=== PATIENT | female | born 1945 | race Caucasian/White ===

== ENCOUNTER 2017-08-12 03:14 | Inpatient (IN) | payer OTHER ==
[~2017-08-12] VITALS: Ht 182.9 cm; Wt 79.4 kg
--- NOTE | ~2017-08-12 | EKG ---
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1945 Requested By: Lisbet Jean Order Number: [id number] MD: Romaine Gutierrez Measurements Intervals [place] Rate: 77 P: 81 SC: 212 QRS: 52 QRSD: 119 T: 88 QT: 409 QTc: 463 Interpretive Statements Sinus rhythm Borderline prolonged SC interval Nonspecific intraventricular conduction delay Borderline low voltage, extremity leads Nonspecific T abnrm, anterolateral leads Baseline wander in lead(s) V4,V5 Compared to ECG 10/24/2010 14:27:38 Intraventricular conduction delay now present Myocardial infarct finding no longer present Electronically Signed On 08-12-2017 8:22:36 CDT by Romaine Gutierrez [email or web address] <ELECTRONICALLY SIGNED> By: Romaine Gutierrez MD 08/12/17 0822 9 042 Romaine Gutierrez MD /EPI
--- NOTE | ~2017-08-12 | O ---
[facility] [place] [address] OPERATIVE REPORT Name: NANCY ESQUIVEL Room #: 410-P [facility] IN M.R.#: [id number] Admission: 08/12/17 Attend Phys: Gautam Silva MD Discharge: Date of : 45 Report #: [id number] THIS REPORT FOR: //name// CC: Gautam Kaye DATE OF SERVICE: 08/13/2017 PREOPERATIVE DIAGNOSIS: Displaced right femoral neck fracture. POSTOPERATIVE DIAGNOSIS: Displaced right femoral neck fracture. PROCEDURE: Right total hip arthroplasty. SURGEON: Elliot Dooley MD. KNITTER OPERATOR: Victorina Obrien PA-C. INDICATIONS FOR ASSISTANCE: Throughout the case, extensive retraction and manipulation of the hip including dislocation and reduction of the joint was required. This was afforded to me by my blood bank assistant ANESTHESIA: General endotracheal. IMPLANTS: [employer]hew size 54 R3 acetabular cup with one acetabular screw, size 13 Synergy cemented high offset stem with a size 36+4 cobalt chrome head. ESTIMATED BLOOD LOSS: 100 mL. COMPLICATIONS: None. SPECIMEN: None. CONDITION UPON LEAVING OPERATING ROOM: Stable. INDICATION FOR PROCEDURE: The patient is a 71-year-old female who fell at home and sustained a right displaced femoral neck fracture. She is relatively active with her and after discussion with she and her , they elected for total hip arthroplasty. DESCRIPTION OF PROCEDURE: Risks, benefits, alternatives, complications were discussed in detail with the patient including but not limited to risk of anesthesia, risk of damage to nerves, arteries, blood vessels, risk for infection, bleeding, risk for continued hip pain, leg length discrepancy, instability and need for reoperation. Informed consent was obtained from the [facility] [address] [address] [place] [address] OPERATIVE REPORT Name: NANCY ESQUIVEL Room #: 410-P [facility] IN M.R.#: [id number] Admission: 08/12/17 Attend Phys: Gautam Silva MD Discharge: Date of : 45 Report #: [id number] patient. The right hip was appropriately marked in the preoperative holding area. She was brought to the operating room and placed in supine position on operating room table. General endotracheal anesthesia was induced without complications. She was placed in the left lateral decubitus position with the right hip uppermost. Right hip and lower extremity were prepped and draped in normal sterile fashion. Timeout was performed properly identifying the patient and procedure as well as the instrumentation and implants. All in the operating room were in agreement. Standard posterior approach to the hip was made with 10 blade through the skin. Dissection was taken down to the fascia with Bovie cautery. This was cleaned with Stewart elevator. Fresh 10 blade was used to make a fascial incision. This was taken proximally and distally with curved Davila scissor. Charnley retractor was placed. The piriformis tendon was identified, tagged and taken down with Bovie cautery. Trochanteric bursa was taken down with Bovie. Capsulotomy was made, and capsule ends were tagged for later repair. There was an obvious femoral neck fracture that extended almost down to the lesser trochanter, and a femoral neck cut was made to clean up the fracture line. The femoral head was removed and deep acetabular retractors were placed. Labrum was removed sharply. Pulvinar was removed with Bovie cautery. Acetabulum was then sequentially reamed up to a size 54, at which point there was excellent bleeding cancellous bone. A size 53 trial cup was placed, found to have good fit. Final size 54 R3 acetabular cup was placed and seated. One acetabular screw was placed for backup fixation, and a polyethylene liner for 36 head was placed. Attention was then turned to the femur. This was reamed and broached up to a size 13, at which point, the size 13 broach was stable. This was trialed with a high offset neck and a 36+0 head. Hip was reduced, taken through range of motion, found to be stable, found to have a short leg length compared to the left, and it was felt this could be made up for the final implant. Hip was dislocated. Broach was removed, and a final size 13 high offset Synergy cemented stem was cemented in place using standard cementation techniques. After the cement cured, this was trialed with a 36+4 head. Hip was reduced, taken through range of motion, found to be stable, found to have equal leg lengths. Hip was dislocated, trial head was removed. Final size 36+4 cobalt chrome head was placed. Hip was reduced, taken through range of motion, found to be stable, found to have equal leg lengths. A periarticular injection consisting of morphine, ropivacaine, epinephrine and Toradol was placed around the hip joint. 1 gram of vancomycin was placed deep in the joint. The capsule and piriformis were repaired with 0 FiberWire. Fascia was closed with 0 Vicryl, skin was closed with 2-0 Vicryl, 3-0 Monocryl and AVA dressing was applied. The patient tolerated this procedure well and went to recovery room under care of Anesthesia postoperatively. By: [id number] Elliot Dooley MD /nt
[~2017-08-12 03:14] MED LIST: CARISOPRODOL 3350 MG PO; DIOVAN160 MG PO; LOVENOX SC; NORCO 5-325 TA1 EACH PO; TOPROL XL100 MG PO
[2017-08-12 03:15] VITALS: BP 140/83
[2017-08-12] MEDS ORDERED: ASPIRIN325 PO (03:53)
[2017-08-12] MEDS ORDERED: VITAMIN D1000 UNI2 PO (03:57)
[2017-08-12 03:59] LABS: ABSOLUTE NEUTROPHILS 7.8 thou/uL (1.4-8.2); BASOPHILS 0.8 % (0.0-2.0); EOSINOPHILS 0.8 % (0.0-3.0); HEMATOCRIT 50.7 % (37.0-47.0); HEMOGLOBIN 17.5 gm/dL (12.0-15.0); LYMPHOCYTES 17.1 % (24.0-44.0); MCH 34.1 pg (26.0-34.0); MCHC 34.6 g/dL (28.0-37.0); MCV 98.6 fL (80.0-100.0); PLATELET COUNT 240 thou/uL (150-400); POLYS 78.3 % (36.0-66.0); RBC 5.14 mil/uL (4.20-5.00); RDW 12.9 % (10.5-14.5)
[2017-08-12 04:00] VITALS: BP 143/74
[2017-08-12 04:01] LABS: CALCIUM 8.8 mg/dL (8.5-10.1); CREATININE 0.7 mg/dL (0.6-1.0); POTASSIUM 3.9 mmol/L (3.5-5.1)
[2017-08-12 04:17] LABS: APTT 24.4 Seconds (24.5-32.8); PROTIME 10.2 Seconds (9.3-11.4)
[2017-08-12 04:38] VITALS: BP 153/73
[2017-08-12 04:51] VITALS: BP 143/74
[2017-08-12 05:43] LABS: MAGNESIUM 1.7 mg/dL (1.8-2.4); PHOSPHORUS 3.6 mg/dL (2.5-4.9)
[2017-08-12 06:07] LABS: FOLIC ACID 19.2 ng/mL (8.6-58.9)
[2017-08-12 06:30] LABS: AMP/METHAMP Negative (Negative); BARBITURATES Negative (Negative); BENZODIAZEPINES Negative (Negative); COCAINE Negative (Negative); METHADONE Negative (Negative); OPIATES Negative (Negative); PCP Negative (Negative)
[2017-08-12 08:03] VITALS: BP 113/61
[2017-08-12 11:41] LABS: HEMATOCRIT 45.7 % (37.0-47.0); MCH 34.1 pg (26.0-34.0); MCV 97.5 fL (80.0-100.0); RBC 4.69 mil/uL (4.20-5.00); RDW 12.7 % (10.5-14.5)
[2017-08-12 11:49] LABS: CALCIUM 8.3 mg/dL (8.5-10.1); CREATININE 0.7 mg/dL (0.6-1.0); POTASSIUM 3.7 mmol/L (3.5-5.1)
[2017-08-12 16:11] LABS: URINE BILIRUBIN NEGATIVE (Negative); URINE BLOOD 1+ (Negative); URINE CLARITY CLEAR; URINE COLOR YELLOW; URINE GLUCOSE-RANDOM* NEGATIVE (Negative); URINE KETONES 2+ (Negative); URINE LEUKOCYTES NEGATIVE (Negative); URINE NITRITE NEGATIVE (Negative); URINE PROTEIN (DIPSTICK) TRACE (Negative); URINE SPECIFIC GRAVITY >= 1.030 (1.005-1.035); URINE UROBILINOGEN 0.2 E.U./dl (0.2-1.0)
[2017-08-12 16:19] LABS: BACTERIA 1-9 Few /HPF (None Seen); CASTS None Seen /LPF (None Seen); CRYSTALS None Seen /LPF (None Seen); MUCUS >6 Heavy strn/LPF (None Seen); SQUAMOUS 4-10 Moderate /LPF (0-3); URINE WBC 6-15 Few /HPF (0-5); YEAST Present (None Seen)
[2017-08-12 21:08] VITALS: BP 156/90
[2017-08-13] VITALS (10 sets, daily range): BP systolic 130–152; BP diastolic 62–83
[2017-08-13 06:00] LABS: ABSOLUTE NEUTROPHILS 6.3 thou/uL (1.4-8.2); BASOPHILS 0.2 % (0.0-2.0); EOSINOPHILS 0.3 % (0.0-3.0); HEMATOCRIT 43.7 % (37.0-47.0); HEMOGLOBIN 15.2 gm/dL (12.0-15.0); LYMPHOCYTES 18.8 % (24.0-44.0); MCH 33.9 pg (26.0-34.0); MCHC 34.7 g/dL (28.0-37.0); MCV 97.6 fL (80.0-100.0); MONOCYTES 11.4 % (1.0-8.0); PLATELET COUNT 183 thou/uL (150-400); POLYS 69.3 % (36.0-66.0); RBC 4.47 mil/uL (4.20-5.00); RDW 12.9 % (10.5-14.5)
[2017-08-13 06:09] LABS: CALCIUM 8.6 mg/dL (8.5-10.1); CREATININE 0.7 mg/dL (0.6-1.0); POTASSIUM 3.7 mmol/L (3.5-5.1)
[2017-08-14 00:04] VITALS: BP 130/67
[2017-08-14 04:00] VITALS: BP 125/60
[2017-08-14 05:48] LABS: HEMATOCRIT 40.2 % (37.0-47.0); HEMOGLOBIN 13.8 gm/dL (12.0-15.0); MCH 33.8 pg (26.0-34.0); MCHC 34.4 g/dL (28.0-37.0); MCV 98.2 fL (80.0-100.0); RBC 4.09 mil/uL (4.20-5.00); RDW 12.8 % (10.5-14.5); WBC 12.3 thou/uL (4.0-11.0)
[2017-08-14 06:03] LABS: CALCIUM 8.4 mg/dL (8.5-10.1); CREATININE 0.8 mg/dL (0.6-1.0); MAGNESIUM 1.5 mg/dL (1.8-2.4); PHOSPHORUS 2.6 mg/dL (2.5-4.9); POTASSIUM 3.9 mmol/L (3.5-5.1)
[2017-08-14 08:16] VITALS: BP 135/85
[2017-08-14 19:36] VITALS: BP 142/67
[2017-08-15 04:21] VITALS: BP 133/59
[2017-08-15 05:02] LABS: HEMATOCRIT 37.6 % (37.0-47.0); MCH 34.1 pg (26.0-34.0); MCHC 34.6 g/dL (28.0-37.0); MCV 98.3 fL (80.0-100.0); RBC 3.82 mil/uL (4.20-5.00); RDW 12.4 % (10.5-14.5); WBC 9.6 thou/uL (4.0-11.0)
[2017-08-15 08:12] VITALS: BP 128/80
[2017-08-15] MEDS ORDERED: HYDROCODON-ACE1 EAC7 PO (09:14)
[2017-08-15 12:16] VITALS: BP 128/80
== END 2017-08-15 13:55 | disposition home health service (06) | DRG 470 ==
LOC: ER 03:14 → 4N 04:02 → EROBS 04:02 → 4N 04:38
PROVIDERS: Emergency Medicine; Hospitalist; Nurse Practitioner Family; Orthopaedic Surgery; Physician Assistant Surgical
PROC: 0SR90J9 Replacement of Right Hip Joint with Synthetic Substitute, Cemented, Open Approach (ICD-10-PCS; principal; 2017-08-13)
DX: S72.001A Fracture of unspecified part of neck of right femur, initial encounter for closed fracture (principal); F10.129 Alcohol abuse with intoxication, unspecified; R73.9 Hyperglycemia, unspecified; I10 Essential (primary) hypertension; Z88.6 Allergy status to analgesic agent; Z88.2 Allergy status to sulfonamides; Z88.8 Allergy status to other drugs, medicaments and biological substances; Z79.82 Long term (current) use of aspirin; Z79.899 Other long term (current) drug therapy; Z87.01 Personal history of pneumonia (recurrent); W18.39XA Other fall on same level, initial encounter; Y93.89 Activity, other specified; Y92.89 Other specified places as the place of occurrence of the external cause; Y99.8 Other external cause status
CPT/HCPCS: 10091; 50010; 50101; 50382; 50414; 51057; 51130; 51225; 51226; 51771; 53000; 53078; 54118; 56460; 56524; 56527; 56528; 56530; 57095; 62110; 62900; 70005

== ENCOUNTER 2019-12-26 07:52 | Inpatient (IN) | payer OTHER ==
[~2019-12-26] VITALS: Ht 182.9 cm; Wt 85.3 kg
[~2019-12-26 07:52] MED LIST changes: +ASPIRIN325 PO; +HYDROCODON-ACE1 EAC7 PO; +VITAMIN D1000 UNI2 PO
[2019-12-26 07:54] VITALS: BP 154/122
[2019-12-26] MEDS ORDERED: ISO D3 2,000 U1 EACH PO (08:18)
[2019-12-26 08:48] LABS: ABSOLUTE NEUTROPHILS 10.3 thou/uL (1.4-8.2); BASOPHILS 0.2 % (0.0-2.0); HEMATOCRIT 51.2 % (37.0-47.0); HEMOGLOBIN 16.7 gm/dL (12.0-15.0); LYMPHOCYTES 5.5 % (24.0-44.0); MCH 33.6 pg (26.0-34.0); MCHC 32.7 g/dL (28.0-37.0); MCV 102.9 fL (80.0-100.0); PLATELET COUNT 289 thou/uL (150-400); POLYS 87.3 % (36.0-66.0); RBC 4.98 mil/uL (4.20-5.00); RDW 13.5 % (10.5-14.5); WBC 11.8 thou/uL (4.0-11.0)
[2019-12-26 08:53] LABS: CALCIUM 9.3 mg/dL (8.5-10.1); CREATININE 1.1 mg/dL (0.6-1.0)
--- NOTE | 2019-12-26 09:00 | EKG ---
[facility] [place] [address] ELECTROCARDIOGRAM REPORT Name: NANCY ESQUIVEL Room #: [facility].#: [id number] Admission: 12/26/19 Attend Phys: Discharge: Date of : 45 Report #: [id number] THIS REPORT FOR: cc: Hammad Kaye MD, Thomas P. 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1945 Requested By: Waqas Jean-Baptiste Order Number: [id number] MD: Prasanna Godoy Measurements Intervals [place] Rate: 125 P: DE: QRS: 75 QRSD: 89 T: 41 QT: 340 QTc: 491 Interpretive Statements Atrial fibrillation Borderline prolonged QT interval Baseline wander in lead(s) I,III,aVL,V2 Compared to ECG 08/12/2017 04:20:45 Sinus rhythm no longer present Intraventricular conduction delay no longer present Electronically Signed On 12-26-2019 9:00:28 CDT by Prasanna Godoy [email or web address] <ELECTRONICALLY SIGNED> By: Prasanna Godoy MD, FAC 12/26/19899 0 0 Prasanna Godoy MD, [facility] /EPI
[2019-12-26 09:03] LABS: ALBUMIN 3.6 g/dL (3.4-5.0); MAGNESIUM 1.6 mg/dL (1.8-2.4); TOTAL BILIRUBIN 1.9 mg/dL (0.2-1.0); TOTAL PROTEIN 7.7 g/dL (6.4-8.2)
[2019-12-26 09:11] LABS: TROPONIN-I 1.12 ng/mL (<0.06)
[2019-12-26 09:24] LABS: URINE BILIRUBIN 2+ (Negative); URINE BLOOD 1+ (Negative); URINE CLARITY CLEAR; URINE GLUCOSE-RANDOM* NEGATIVE (Negative); URINE KETONES NEGATIVE (Negative); URINE LEUKOCYTES-REFLEX NEGATIVE (Negative); URINE NITRITE-REFLEX NEGATIVE (Negative); URINE PROTEIN (DIPSTICK) 2+ (Negative); URINE SPECIFIC GRAVITY >= 1.030 (1.005-1.035)
[2019-12-26 09:27] LABS: ICTOTEST (BILI CONFIRMATORY) Positive (Negative); URINE COLOR AMBER
[2019-12-26 09:57] LABS: SQUAMOUS 4-10 Moderate /LPF (0-3)
[2019-12-26 10:01] LABS: BACTERIA-REFLEX 1-9 Few /HPF (None Seen); CRYSTALS None Seen /LPF (None Seen); URINE WBC-REFLEX 0-5 Rare /HPF (0-5)
[2019-12-26 10:03] LABS: HYALINE CASTS 0-3 Few /LPF (None Seen)
[2019-12-26 10:35] LABS: INR 1.2; PROTIME 11.8 Seconds (9.3-11.4)
[2019-12-26 13:33] VITALS: BP 134/94
[2019-12-26 14:14] LABS: FOLIC ACID 15.7 ng/mL (8.6-58.9)
[2019-12-26 17:00] VITALS: BP 174/104
--- NOTE | 2019-12-26 19:30 | NUR ---
PATIENT ARRIVED TO UNIT VIA STRECHER, ALERT AND ORIENTED X4. AFIB WITH RVR ON THE MONITOR, BP 174/104, DR JIMENEZ NOTIFIED AND NEW ORDERS RECIEVED. ADMISSION COMPLETED AND NEW POC INITIATED.
[2019-12-26 19:42] VITALS: BP 139/87
[2019-12-27 00:13] VITALS: BP 159/95
[2019-12-27 01:32] LABS: ABSOLUTE NEUTROPHILS 9.3 thou/uL (1.4-8.2); BASOPHILS 0.6 % (0.0-2.0); EOSINOPHILS 0.2 % (0.0-3.0); HEMATOCRIT 47.5 % (37.0-47.0); HEMOGLOBIN 15.9 gm/dL (12.0-15.0); LYMPHOCYTES 8.6 % (24.0-44.0); MCH 34.3 pg (26.0-34.0); MCHC 33.5 g/dL (28.0-37.0); MCV 102.5 fL (80.0-100.0); MONOCYTES 10.8 % (1.0-8.0); PLATELET COUNT 258 thou/uL (150-400); POLYS 79.8 % (36.0-66.0); RBC 4.63 mil/uL (4.20-5.00); RDW 13.5 % (10.5-14.5); WBC 11.7 thou/uL (4.0-11.0)
[2019-12-27 01:34] LABS: CALCIUM 8.7 mg/dL (8.5-10.1); CREATININE 1.1 mg/dL (0.6-1.0)
[2019-12-27 01:35] LABS: POTASSIUM 3.9 mmol/L (3.5-5.1)
--- NOTE | 2019-12-27 03:33 | NUR ---
ASSESSMENTS CHARTED, MEDS CHARTED AT GIVEN. AFIB WITH RVR, ON DILTALZAM DRIP TITRATED. ON HEPARIN DRIP TITRATED FOR ANTICOAGULATION. ON ROOM AIR. FALL RISK, FALL PRECAUTIONS IN PLACE DURING SHIFT. 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 IN ORDER FOR PATIENT TO AGREE TO BE ADMITTED. HER WAS ADMITTED TO . DENIED PAIN.
[2019-12-27 05:40] VITALS: BP 138/98
[2019-12-27 06:06] LABS: GLYCOHEMOGLOBIN (HGB A1C) 5.3 % (4.8-5.6)
[2019-12-27 08:40] VITALS: BP 141/74
--- NOTE | 2019-12-27 10:38 | NUR ---
met with patient who admits with [facility]. Patient resides at home with spouse. her spouse has dementia. He ambulates with walker at home. He has dementia but able to dress self, eat, shower and independent with adls. She needs to remind him of situations and cannot be left alone. Patients spouse admitted to [facility] unit as patient admitted to [facility]U. Patient wants to see spouse. Call placed to [facility]. Patients PCP Dr Leighton Kaye. Patient reports she has sister in law in town who can assist on weekends. patient anticipates no dc needs. 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 casemgt following.
[2019-12-27 12:35] VITALS: BP 134/83
[2019-12-27 16:45] VITALS: BP 149/50
--- NOTE | 2019-12-27 18:11 | NUR ---
ASSUMED CARE AT SHIFT CHANGE, ALERT,ORIENTED AND PLEASANT. VSS AND REMAINS ON CARDIZEM DRIP. ASSESSMENT DOCUMENTED. PATIENT WAS ABLE TO SPAEK TO HER HUSBAD ON THE PHONE, AND WAS HAPPY TO HEAR FROM HIM. APTEINT IS A PATIENT IN 5S.ALL HER CONCERNS AND QUESTIONS WAS ADDRESSED BY SW/CM. AND WILL CONTINUE WITH POC.
[2019-12-27 19:29] VITALS: BP 127/82
--- NOTE | 2019-12-28 03:51 | NUR ---
Assumed pt care at 1900. No sign of distress noted in pt. Denies any pain. Pt is stable and sitting in chair. Fall precaution in place. Assessment completed and documented. Scheduled meds administered to pt. No acute event overnight. Pt is still in AFIB but rate is controlled. Contiue to monitor pt. No further needs at time.
[2019-12-28 04:22] VITALS: BP 136/81
[2019-12-28 06:44] LABS: ALBUMIN 2.8 g/dL (3.4-5.0); CREATININE 1.1 mg/dL (0.6-1.0); POTASSIUM 3.7 mmol/L (3.5-5.1); TOTAL BILIRUBIN 1.2 mg/dL (0.2-1.0); TOTAL PROTEIN 5.7 g/dL (6.4-8.2)
[2019-12-28 07:56] VITALS: BP 150/81
[2019-12-28] MEDS ORDERED: DIGOXIN125 MCG PO ×2 (08:48→11:32)
[2019-12-28] MEDS ORDERED: ELIQUIS5 MG PO ×2 (08:48→11:32)
[2019-12-28] MEDS ORDERED: CARDIZEM CD120 MG PO ×2 (08:48→11:32)
[2019-12-28 11:45] VITALS: BP 151/82
--- NOTE | 2019-12-28 14:17 | NUR ---
Spoke with [facility] updated patient is switching to orals today and may trasition to home later today. They reports patients spouse can transition to home with her today. RN reports later patient feels she needs one more day. She is worried about her blood pressure. Dr Silva agreeable for one more day. RN plans to call [facility]. Anticipate dc home no needs.
[2019-12-28 16:13] VITALS: BP 151/94
--- NOTE | 2019-12-28 17:23 | NUR ---
ASSUMED CARE PT SHIFT CHANGE. ASSESSMENTS CHARTED. PT ALERT AND ORIENTED. VSS STABLE DENIES PAIN. DILT GTT DC'D THIS AM. HR CONTROLLED. PT UP AD DARRELL TOELRATING WELL. MRI THIS SHIFT-REFER TO RESULTS. PT PROGRESSING TOWARD GOALS. PLAN FOR DC IN AM. WILL CONT TO MONITOR AND FOLLOW POC.
[2019-12-28 20:16] VITALS: BP 141/83
[2019-12-29 03:23] VITALS: BP 178/93
--- NOTE | 2019-12-29 03:44 | NUR ---
Assumed pt care at 1900. Pt is alert and oriented with no sign of distress noted in pt. Pt is stable. Heart rate under control. Assessment completed and documented. Scheduled meds administered to pt. 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 No acute events overnight. Continue to monitor. Anticipating discharge. No further needs at this time.
[2019-12-29 04:11] LABS: HEMATOCRIT 45.9 % (37.0-47.0); HEMOGLOBIN 15.7 gm/dL (12.0-15.0); MCHC 34.1 g/dL (28.0-37.0); MCV 102.6 fL (80.0-100.0); RBC 4.48 mil/uL (4.20-5.00); RDW 13.5 % (10.5-14.5); WBC 8.4 thou/uL (4.0-11.0)
[2019-12-29 08:14] VITALS: BP 170/102
[2019-12-29 08:15] VITALS: BP 170/102
[2019-12-29] MEDS ORDERED: CEFDINIR300 MG PO (09:51)
[2019-12-29 10:34] VITALS: BP 170/102
--- NOTE | 2019-12-29 11:48 | NUR ---
Pt dcing home today and has her car in the ER parking lot. Dc arrangements coordinated with [facility] FRITZ Dhillon that Mr Meraz will be dc'd at 1pm as well and taken to the ER entrance with all his belongings, home meds, and paperwork. They will f/u with their PCP. Resources for respite or private duty given to pt to work on setting up additional caregiving support and to help manage her spouse's care should she not be able to care for him. The pt does have a DPOA for health care for herself with her sisters (who live out of state) as her agent if needed in the future. Pt has needed dme in the home and hh f/u not indicated at this time.
--- NOTE | 2019-12-29 13:17 | NUR ---
PT CARE ASSUMED AT 0700. ASSESSMENTS CHARTED. MEDICATION CHARTED. AO X 4. UP AD DARRELL. RFA IV. PT TO BE DISCHARGED; COORDINATED WITH 5S SO THAT PT'S WILL BE DISCHARGED AND BROUGHT DOWN TO ER AT THE SAME TIME PT IS DISCHARGED. TELEMETRY D/C'D. IV D/C'D. DISCHARGE AND MEDICATION PAPERWORK SIGNED.
--- NOTE | 2020-01-01 09:53 | 2DMMODE ---
[facility] [place] [address] 2 D/M-MODE ECHOCARDIOGRAM Name: NANCY ESQUIVEL Room #: 217-P [facility] IN M.R.#: [id number] Admission: 12/26/19 Attend Phys: Gautam Silva MD Discharge: 12/29/19 Date of : 45 Report #: [id number] THIS REPORT FOR: cc: Hammad Kaye MD, Thomas P. MD Santiago, Patrick MD [facility] Santos Godoy MD [facility] ~ Sex/Age : F/74Y Height/Weight : 182.9cm/79.4kg Patient Name : NANCY ESQUIVEL Study Date : 2019-12-26 BSA : 2.01? Requesting Name : ECHO COMPLETE Date of : 1945 Request Doctor : SANTOS GODOY Department : CARD --< Approved Report > Study performed: 12/26/2019 14:15:25 EXAM: Comprehensive 2D, Doppler, and color-flow Echocardiogram Patient Location: ER Status: routine BSA: 2.01 HR: 130 bpm BP: 132/99 mmHg Rhythm: Atrial Fibrillation Indications Afib, short of breath, elevated troponin. HTN 2D Dimensions RVDd: 41.37 mm IVSd: 12.51 (7~11mm) LVOT Diam: 19.89 (18~24mm) LVDd: 41.51 mm PWd: 12.21 (7~11mm) Ascending Ao: 33.65 (22~36mm) LVDs: 29.31 (25~40mm) Aortic Root: 31.38 mm Volumes Left Atrial Volume (Systole) Single Plane 4CH: 114.45 mL Single Plane 2CH: 80.98 mL LA ESV Index: 56.00 mL/m2 [facility] [address] [place] [address] 2 D/M-MODE ECHOCARDIOGRAM Name: NANCY ESQUIVEL Room #: 217-P [facility] IN ..#: [id number] Admission: 12/26/19 Attend Phys: Gautam Silva MD Discharge: 12/29/19 Date of : 45 Report #: [id number] Aortic Valve AoV Peak Paulino.: 1.07 m/s AO Peak Gr.: 4.58 mmHg LVOT Max P.68 mmHg LVOT Max V: 0.82 m/s CORI Vmax: 2.38 cm2 Mitral Valve MV Decel. Time: 95.74 ms MV E Max Paulino.: 1.39 m/s Pulmonary Valve PV Peak Paulino.: 0.90 m/s PV Peak Gr.: 3.21 mmHg Tricuspid Valve TR Peak Paulino.: 2.86 m/s RAP Estimate: 15.00 mmHg TR Peak Gr.: 33.00 mmHg PA Pressure: 48.00 mmHg Left Ventricle The left ventricle is normal size. There is normal LV segmental wall motion. Mild concentric left ventricular hypertrophy. Left ventricular systolic function is normal. LVEF is 55-60%. This study is not technically sufficient to allow evaluation of the LV diastolic function due to atrial fibrillation. Right Ventricle The right ventricle is normal size. The right ventricular systolic function is normal. Atria Left atrium is severely dilated. Right atrium is moderately dilated. Aortic Valve The aortic valve is normal in structure. No aortic regurgitation is present. There is no aortic valvular stenosis. Mitral Valve The mitral valve is normal in structure. Moderate mitral regurgitation. Tricuspid Valve The tricuspid valve is normal in structure. Mild tricuspid regurgitation. Estimated PAP is 45mmHg. Pulmonic Valve The pulmonary valve is normal in structure. Trace pulmonic regurgitation. Great Vessels [facility] [address] [place] [address] 2 D/M-MODE ECHOCARDIOGRAM Name: NANCY ESQUIVEL Room #: 217-P [facility] IN .R.#: [id number] Admission: 12/26/19 Attend Phys: Gautam Silva MD Discharge: 12/29/19 Date of : 45 Report #: [id number] The aortic root is normal in size. The ascending aorta is normal in size. IVC is dilated and collapses <50% with inspiration. Pericardium There is no pericardial effusion. <Conclusion> Normal left atrial size, mild concentric hypertrophy and preserved ejection fraction of 60% No obvious segmental wall motion abnormality Study performed in Atrial fibrillation Moderate biatrial enlargement Mild tricuspid valve insufficiency Moderate pulmonary hypertension PA pressure systolic estimated at 45 mmHg Moderate and posteriorly directed mitral valve insufficiency Electronically Approved : 01/01/2020 09:26:14 By: [id number] Santos Godoy MD, FACC /JW
== END 2019-12-29 12:49 | disposition home or self-care (01) | DRG 309 ==
LOC: ER 07:52 → 2N 12:34 → EROBS 12:34 → 2N 17:58
PROVIDERS: Emergency Medicine; Nurse Practitioner; ADMIT Hospitalist; ATTEND Hospitalist
DX: I48.19 Other persistent atrial fibrillation (principal); N17.9 Acute kidney failure, unspecified; E46 Unspecified protein-calorie malnutrition; E87.5 Hyperkalemia; E83.42 Hypomagnesemia; G47.00 Insomnia, unspecified; D53.9 Nutritional anemia, unspecified; I10 Essential (primary) hypertension; Z88.2 Allergy status to sulfonamides; Z88.7 Allergy status to serum and vaccine; Z88.8 Allergy status to other drugs, medicaments and biological substances; Z79.82 Long term (current) use of aspirin; Z79.899 Other long term (current) drug therapy; Z68.25 Body mass index [BMI] 25.0-25.9, adult
CPT/HCPCS: 10081